=== PATIENT | male | born 1995 | race Two or more races ===

== ENCOUNTER 2023-05-05 08:49 | Emergency (ER) | payer BC ==
[2023-05-05] MEDS ORDERED: Acetaminophen 500 MG TAB ONE (09:23)
[2023-05-05 10:10] LABS: SARS-CoV-2 NAA Rapid Test DETECTED (NotDetected)
== END 2023-05-05 09:52 | disposition home or self-care (01) ==
LOC: ERS 08:49
DX: B34.9 Viral infection, unspecified (principal); F17.210 Nicotine dependence, cigarettes, uncomplicated; Z20.822 Contact with and (suspected) exposure to COVID-19
CPT/HCPCS: 99283